=== PATIENT | male | born 1985 | race Caucasian/White ===

== ENCOUNTER 2017-06-30 18:15 | Emergency (ER) | payer BC ==
[2017-06-30 18:20] VITALS: RESP 17; TEMP 98.1
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
[2017-06-30 20:16] VITALS: BP 134/90; PULSE 58; O2SAT 95
== END 2017-06-30 20:14 | disposition home or self-care (01) ==
PROC: 0HQ1XZZ Repair Face Skin, External Approach (ICD-10-PCS; principal; 2017-06-30)
DX: S01.82XA Laceration with foreign body of other part of head, initial encounter (principal); V18.0XXA Pedal cycle driver injured in noncollision transport accident in nontraffic accident, initial encounter; Y92.89 Other specified places as the place of occurrence of the external cause; Y99.8 Other external cause status; Y93.23 Activity, snow (alpine) (downhill) skiing, snowboarding, sledding, tobogganing and snow tubing